=== PATIENT | male | born 1960 | race Caucasian/White ===

== ENCOUNTER → 2016-12-13 | Outpatient (CLI) | payer BC ==
[~2016-12-13] MED LIST: LOSA25TA34 PO; TRAM-277 PO; [UNRECOGNIZED DRUG - CODE] PO
--- NOTE | 2016-12-13 16:08 | DI ---
Indication: ITS.REASON: G62.9 POLYNEUROPATHY, UNSPECIFIED; M54.5 LOW BACK PAIN PROCEDURE: MRI LUMBAR SPINE W/O CONTRAST: Encounter: Initial Comparison: Lumbar spine MRI dated August 05, 2013 Technique: Multiplanar multisequence MR imaging of the lumbar spine was performed without contrast. Findings: Alignment of the lumbar spine is unchanged. No acute fracture or subluxation seen. Degenerative endplate change at L5-S1 is similar to the prior study. Conus medullaris terminates normally at L1. The paraspinal soft tissues show no acute findings. Segmental analysis: L1-L2: Normal L2-L3: Normal L3-L4: Mild degenerative facet disease contributing to mild right neural foraminal stenosis. No central canal or left foraminal narrowing. L4-L5: Mild disk bulging with degenerative facet hypertrophy contributing to mild central canal narrowing. Severe left foraminal stenosis with disk and osteophyte material impinging upon the exiting L4 nerve root. Moderate right neural foraminal stenosis. The right foraminal narrowing has worsened from the prior study. L5-S1: Small central disk protrusion without central canal stenosis. Degenerative facet hypertrophy contributing to moderate right and moderate to severe left neural foraminal stenosis. This has also slightly worsened. Impression: Worsening foraminal stenosis at L4-L5 and L5-S1. .
== END ==
LOC: IMA 14:04
PROVIDERS: ATTEND Internal Medicine
DX: M47.896 Other spondylosis, lumbar region (principal); M51.16 Intervertebral disc disorders with radiculopathy, lumbar region; M51.27 Other intervertebral disc displacement, lumbosacral region; G62.9 Polyneuropathy, unspecified